=== PATIENT | male | born 1950 | race Caucasian/White ===

== ENCOUNTER 2025-08-13 09:00 | Outpatient (AMB) | payer MEDICARE, SELFPAY ==
[2025-08-13 09:02] VITALS: BP 122/70; PULSE 61; BMI 25.1
--- NOTE | 2025-08-13 09:02 | MHC.OFFVIS ---
Vital Signs 08/13/25 09:02 Height 5 ft 9 in Weight 169 lb 12.095 oz BMI 25.1 BP 122/70 Blood Pressure Location Lt brachial Position Sitting Pulse 61 Intake Visit Reasons: [employer]/Dr. Curry/CAD on recent calcium score CT Intake Note: New patient calcium score test not issues Diet Attendant Required: No Allergies No Known Allergies Allergy (Verified 08/13/25 09:04) Medication List - Last Reconciled 08/13/25 by Carrington Krause MD rosuvastatin 40 mg PO DAILY HPI Comments Details: Thank you for referring Ricardo in cardiology consultation today for noted elevated calcium score on his coronary calcium score. Patient 75-year-old male very active. He says he walks when he plays 18 hole golf, does pushups and does sprints. He has no exertional chest pain or shortness of breath. About 10 years ago he had a coronary calcium score done which was elevated at that time but did not believe in medical therapy with statins. However over the last 2 years he has started on a escalating dose of Crestor and early this year was Crestor was increased to 40 mg daily. He has not had a repeat lipid panel. Coronary calcium score was done about a year ago has a follow up and showed significantly elevated calcium score closer to 500, mainly located in LAD and RCA territory. He comes in for evaluation and consultation and management plan for his elevated coronary calcium score. He denies heart failure symptoms. Denies any lightheadedness, syncope. He says blood pressures been well controlled. Does have family history of father dying at age 56 with myocardial infarction. [facility] Medical History Family history of premature CAD Hyperlipidemia CAD (coronary artery disease) Surgical History History of colon surgery Hx of prostatectomy Family History Father CAD (coronary artery disease) Mother Cancer Social History Patient Tobacco Use Status: Never used Tobacco Review of Systems Const Denies chills, Denies daytime sleepiness, Denies fatigue, Denies fever(s), Denies frequent falls, Denies poor appetite, Denies snoring, Denies stops breathing during sleep, Denies weakness, Denies weight gain and Denies weight loss Eyes Denies loss of vision ENT Denies dizziness and Denies hearing loss Card Denies chest pain, Denies claudication, Denies leg edema, Denies lightheadedness, Denies palpitations, Denies dyspnea, Denies dyspnea on exertion and Denies orthopnea Resp Denies cough, Denies excessive phlegm production, Denies dyspnea, Denies dyspnea on exertion, Denies snoring and Denies wheezing GI Denies abdominal pain, Denies hematochezia, Denies change in bowel habits, Denies nausea and Denies vomiting Denies dysuria and Denies urinary frequency Musc Denies arthralgias, Denies muscle weakness and Denies numbness Skin/Breast Denies nail changes and Denies rash Neuro Denies Abnormal speech present, Denies dizziness, Denies frequent falls, Denies loss of vision, Denies memory loss, Denies numbness and Denies weakness Psych Denies depression and Denies memory loss Endo Denies fatigue and Denies palpitations Jeyson/Lymph Reports easy bruising and Reports other (anemia) Aller/Immun Denies wheezing Physical Exam Vital Signs: Last Vital Signs Pulse 61 08/13/25 09:02 BP 122/70 08/13/25 09:02 BMI result Body Mass Index 25.1 Const General: cooperative, comfortable, no acute distress, alert, awake, Physically active and well groomed Nutritional Appearance: thin Orientation/consciousness: patient oriented x3 Limitations: no limitations HEENT Head: Yes normocephalic and Yes atraumatic Neck Neck: Yes trachea midline, Yes supple and Yes no JVD Carotids: no bruits Resp Effort & Inspection: normal respiratory effort Auscultation: clear to auscultation bilaterally Cardio Jugular venous distension: no JVD Rate: regular rate Rhythm: regular rhythm Heart sounds: S1 normal heart sound present, S2 normal heart sound present, no click, no gallops, no murmurs and no rubs GI Auscultation: normal bowel sounds Skin General skin exam: no rashes or lesions noted Neuro General: patient oriented x3 and no focal motor deficits Speech: No Abnormal speech present Extrem General: Yes no clubbing, cyanosis or edema Psych Appearance: grossly normal Office Procedures EKG Details: EKG shows normal sinus rhythm with RSR prime pattern in lead V1 suggestive of RV conduction delay 28482-[id number], Complete Assessment & Plan Assessment & Plan (1) CAD (coronary artery disease): Code(s): I25.10 - Atherosclerotic heart disease of [place] coronary artery without angina pectoris Category: Medical Plan: Prognostically significant calcium buildup in coronary artery is greater than 400 score predominantly in two-vessel distribution. He is currently no symptoms. However given the extensive nature of calcium score, obstructive coronary artery disease needs to be ruled out despite no symptoms as 5% patient could have silent ischemia. This was discussed with him. Would suggest exercise myocardial perfusion imaging to assess for exercise capacity as well as ischemia to the LV myocardium. This was discussed with him. Rationale was discussed. He understands and agrees. Pathophysiology of coronary artery disease atherosclerosis was discussed in details. His last LDL was 76 not well optimized. However since then his Crestor was increased. Advised to recheck his LDL panel along with inflammatory markers and other novel lipid markers in the near future. He is agreeable to that as well. There is data to suggest that he would benefit from low-dose aspirin therapy as primary prevention in patients with coronary calcium score of greater than 100. Would advise low-dose aspirin therapy which is agreeable as well. Will follow up in the clinic in 1 year's time, sooner PRN. Thank you for allowing me to partake in his care Orders: Orders Lipoprotein A Today I25.10 - Atherosclerotic heart disease of [place] coronary artery without angina pectoris Apolipoprotein B Today I25.10 - Atherosclerotic heart disease of [place] coronary artery without angina pectoris CA stress test Today I25.10 - Atherosclerotic heart disease of [place] coronary artery without angina pectoris NM cardiolite stress test 2 Weeks I25.10 - Atherosclerotic heart disease of [place] coronary artery without angina pectoris, R07.9 - Chest pain, unspecified Lipid Panel Today I25.10 - Atherosclerotic heart disease of [place] coronary artery without angina pectoris CRP High Sensitivity Today E78.5 - Hyperlipidemia, unspecified, I25.10 - Atherosclerotic heart disease of [place] coronary artery without angina pectoris Medications: New aspirin (Ecotrin Low Strength) 81 mg PO DAILY 30 tabs 5RF Coding Level of Care Code New Pt Level 4 (08116) Complex EM visit Add On G2211 Diagnoses CAD (coronary artery disease) I25.10 CPT Codes EKG - CPT: 69285-[id number], Complete ([id number])
--- OUTSIDE RECORDS SUMMARY | 2025-08-13 10:01 | XMS_ITS | Clinical Summary ---
Author Organization [facility] Address [address] [place] [address] [place] [phone] Phone Care Team Providers Care Spanish Translator Name Role Phone Rosario Locke MD Primary Care Provide r Allergies No known active allergies Medications omeprazole (PRILOSEC) 40 MG capsule TAKE 1 CAPSULE TWICE A DAY BEFORE A MEAL 07/02/2021 Active ergocalciferol (DRISDOL) 50,000 unit capsule Take 50,000 Units by mouth once a week. Active ascorbic acid, vitamin C, (VITAMIN C) 500 MG tablet Take 500 mg by mouth daily. Active magnesium oxide 250 mg (150 mg elemental) Tab Take 250 mg by mouth daily. Active Hospital, Clinic, or Other Facility Administered Medication Ordered Dose Route Frequency Start Date End Date Status collagenase (XIAFLEX) injection 0.58 mg 0.58 mg Lesional See admin instructions 12/01/2021 Active Social History Tobacco Use Types Packs/Day Years Used Date Smoking Tobacco: Never Smokeless Tobacco: Never Alcohol Use Standard Drinks/Week Comments Yes 0 (1 standard drink = 0.6 oz pur e alcohol) Education Answer Date Recorded Are you interested in more education? Not on salbador e 02/10/2023 Are you concerned about learning? Not on file 02/10/2023 No 02/10/2023 No 02/10/2023 Digital Access Answer Date Recorded No 03/13/2023 No 03/13/2023 Reliable internet access at home? Not on file 03/13/2023 Device with a working camera? Not on file Sex and Gender Information Value Date Recorded Sex Assigned at Not on file Legal Sex Male 9:48 AM EDT Gender Identity Not on file Sexual Orientation Not on file Last Filed Vital Signs Vital Sign Reading Time Taken Comments Blood Pressure - - Pulse - - Temperature - - Respiratory Rate - - Oxygen Saturation - - Inhaled Oxygen Concentration - - Weight 74.8 kg (165 lb) 12/26/2021 9:53 AM EDT Height 175.3 cm (5' 9 ) 12/26/2021 9:53 AM EDT Body Mass Index 24.37 12/26/2021 9:53 AM EDT Plan of Treatment Health Maintenance Due Date Last Done Comments LIPID PANEL 1950 DEPRESSION SCREENING 1962 HEPATITIS C SCREENING 1968 COLOGUARD 1995 COLONOSCOPY 1995 COLORECTAL CANCER SCREENING 1995 FIT TEST 1995 FOBT 1995 SIGMOIDOSCOPY 1995 VIRTUAL COLONOSCOPY 1995 INFLUENZA VACCINE (#1) 2025 , 10/28/2021, 07/28/2020 COVID-19 VACCINE ( season) 2025 08/04/2023, 07/03/2022, 03/22/2022, Additional history exists Adult Td,Tdap Booster 09/17/2031 09/17/2021 ZOSTER VACCINES Completed 12/07/2020, 08/16, 09/18/2015 SMOKING STATUS SCREENING (Once After 26 Yrs) Completed 12/26/2021 PNEUMOCOCCAL VACCINES (50+ years) Completed 11/02/2022, 09/10/2020, 10/13/2019 RSV VACCINE Completed 06/13/2023 HEPATITIS A VACCINES Aged Out No long er eligible based on patient's age to complete this topic HIB VACCINES Aged Out No longer eligi ble based on patient's age to complete this topic MENINGOCOCCAL VACCINES (ACWY) Aged Out No longer eligible based on patient's age to complete this topic MENINGOCOCCAL VACCINES (B) Aged Out N o longer eligible based on patient's age to complete this topic Medical Devices Not on file Insurance [employer] RE[employer] Care Teams Spanish Translator Relationship Specialty Start Date End Date Rosario Locke MD [address] [place] [address] PCP - General Internal Medicine 05/03/21 Additional Source Comments The information contained in this document represents components of the legal health record. It is not the complete legal health record.[facility]
== END 2025-08-13 09:30 | disposition home or self-care (01) ==
LOC: HO.HCS 09:01
PROVIDERS: PCP Student in an Organized Health Care Education/Training Program; Visit Provider Internal Medicine Cardiovascular Disease
DX: I25.10 Atherosclerotic heart disease of native coronary artery without angina pectoris (principal)
CPT/HCPCS: 93010; 99204; G2211

== ENCOUNTER → 2025-08-13 09:00 | Outpatient (BNVA) | payer MEDICARE, SELFPAY | PROVIDERS: PCP Student in an Organized Health Care Education/Training Program; Visit Provider Internal Medicine Cardiovascular Disease | DX: I25.10 Atherosclerotic heart disease of native coronary artery without angina pectoris (principal) | CPT/HCPCS: 93005; 99202 ==

== ENCOUNTER 2025-09-08 07:38 | Outpatient (REF) | payer MEDICARE, SELFPAY ==
--- OUTSIDE RECORDS SUMMARY | 2025-09-08 07:40 | XMS_ITS | Clinical Summary ---
Author Organization [facility] Address [address] [place] [address] [place] [phone] Phone Care Team Providers Care Subgrade Roller Operator Name Role Phone Rosario Locke MD Primary [...] [employer] Care Teams Subgrade Roller Operator Relationship Specialty Start Date End Date Rosario Locke MD [address] [place] [address] PCP - General Internal Medicine 05/03/21 Additional Source Comments The information contained in this document represents components of the legal health record. It is not the complete legal health record.[facility]
[2025-09-08 12:16] LABS: Cholesterol 137 mg/dL (<200); HDL Cholesterol 48 mg/dL (>40); Triglycerides 66 mg/dL (<150)
== END 2025-09-08 07:39 | disposition home or self-care (01) ==
LOC: HO.WFDLDS 07:38
PROVIDERS: Visit Provider Internal Medicine Cardiovascular Disease
DX: I25.10 Atherosclerotic heart disease of native coronary artery without angina pectoris (principal); E78.5 Hyperlipidemia, unspecified
CPT/HCPCS: 36415; 80061; 82172; 83695; 86141

== ENCOUNTER → 2025-09-18 08:13 | Outpatient (REF) | payer MEDICARE, SELFPAY ==
--- NOTE | ~2025-09-18 | NM_ITS ---
EXERCISE MYOCARDIAL PERFUSION STUDY INDICATION: Chest pain to evaluate for myocardial ischemia TECHNIQUE: The patient was brought in for an exercise perfusion study on 09/18/2025. Patient performed exercise as per Gabriel protocol and was injected 25 mCi of sestamibi once target heart rate was achieved. Images were obtained using the SPECT gamma camera interlaced with the gating device. Images were obtained in supine position. Resting perfusion study was performed on 09/21/2025. Patient was administered 25 mCi of sestamibi intravenously at rest. Images were then obtained in supine position. Images were processed with the software and compared side to side in short axis, horizontal long axis and vertical long axis views. Images obtained without without CT attenuation. Total DLP 70 mGy-cm. FINDINGS: Raw images were reviewed The stress perfusion study showed nonattenuated images show mildly to moderately reduced uptake in the mid and basal inferior wall of the LV myocardium. Remainder of the LV myocardium is normally perfused. Attenuated corrected images show normal uptake of radiotracer in all segments of the LV myocardium. The gated study shows normal LV systolic function with calculated LVEF of 68%. LV cavity is normal in size. The gated study shows normal systolic wall thickening and contraction of segments. Resting study shows normal perfusion pattern compared to stress perfusion study. Gating at rest reveals normal systolic wall motion with ejection fraction at 67%. The findings are consistent with normal myocardial perfusion. NM/NM cardiolite stress test IMPRESSION: 1. Myocardial perfusion imaging study shows normal myocardial perfusion. 2. Gated LVEF is 68%. 3. Transient ischemic dilatation not present. EKG revealed negative for ischemia. Electronically signed by: Carrington Krause MD 09/22/2025 04:59 PM [facility]
--- NOTE | 2025-09-18 08:16 | CA_ITS ---
Acquisition Time: 2025-09-18 08:37:01 Total Exercise Time: 00:08:30 Test Indications: CAD ELEVATED CALCIUM SCORE Medications: ROSUVASTATIN ASA Protocol: BRIANA Max HR: 127 BPM 87% of Pred: 145 BPM Max BP: 174/60 mmHG Max Work Load: 10.1 METS Exercise stress test with exercise 8 mins 30 secs of Briana Protocol, achieving 87% MPHR, with reports of mild SOB, no chest pain, with isolated PACs, with normotensive response to exercise. Without any EKG changes meeting criteria for ischemia. In recovery, breathing improved and pt feeling back to baseline. Nuclear images pending. Test reviewed with Dr. Sunshine. Referred By: Carrington Krause Electronically Signed By: Reid South
== END ==
LOC: HO.CARD 08:13
PROVIDERS: PCP Student in an Organized Health Care Education/Training Program; Visit Provider Internal Medicine Cardiovascular Disease
DX: I25.10 Atherosclerotic heart disease of native coronary artery without angina pectoris (principal); R07.9 Chest pain, unspecified
CPT/HCPCS: 78452; 93017; A9500

== ENCOUNTER → 2025-09-18 08:16 | Outpatient (BNV) | payer MEDICARE, SELFPAY | PROVIDERS: PCP Student in an Organized Health Care Education/Training Program | DX: R07.9 Chest pain, unspecified (principal) | CPT/HCPCS: 78452; 93016; 93018 ==